=== PATIENT | male | born 1970 | race Hispanic/Latino ===

== ENCOUNTER 2024-01-18 17:23 | Emergency (ER) | payer OTHER ==
[~2024-01-18] VITALS: Ht 188 cm; Wt 92.0 kg
[~2024-01-18 17:23] MED LIST: ALOGLIPTIN25 MG PO; CLARITIN10 MG PO; FISH OIL 1,001000 MG PO; JARDIANCE10 MG PO; LOVASTATIN10 MG PO; METFORMIN HCL500 M3 PO; METOPROLOL SUCC25 MG PO; NORVASC5 MG PO; PRILOSEC OTC20 MG PO; ZESTRIL20 MG PO
[2024-01-18 19:39] LABS: BILIRUBIN, URINE NEGATIVE (negative); BLOOD/HGB, URINE NEGATIVE (Negative); KETONE, URINE NEGATIVE (Negative); LEUK ESTERASE, URINE NEGATIVE (negative); NITRITE, URINE NEGATIVE (negative); PH, URINE 5.5 (5-7)
[2024-01-18 19:43] LABS: RED BLOOD CELLS, URINE 0-1 /hpf (0-5)
[2024-01-18 19:44] LABS: BACTERIA, URINE NONE SEEN /hpf (negative); CASTS, URINE NONE SEEN \\lpf; COLLECTION TYPE, URINE CLEAN CATCH; CRYSTALS, URINE NONE SEEN (0-1+); EPITHELIAL CELLS, URINE NONE SEEN /lpf (0-1+); REFLEX CULTURE, URINE Yes (No)
[2024-01-18 19:45] LABS: BASOPHILS 0.6 % (0-2); EOSINOPHILS 3.1 % (0-6); HEMATOCRIT 42.2 % (35.0-50.0); HEMOGLOBIN 15.3 g/dL (12.0-18.0); MCH 31.5 (27-36); MCHC 36.3 g/dl (30-36); MCV 86.6 fl (81-99); MONOCYTES 10.9 % (0-12); NEUTROPHILS 72.4 % (39-80); PLATELET COUNT 229 K/uL (140-440); RBC 4.87 M/ul (4.3-5.7); RDW 12.5 (10.5-15.0)
[2024-01-18 19:59] LABS: ALBUMIN 3.9 g/dL (3.4-5.0); ALBUMIN/GLOBULIN RATIO 0.8 (1.1-2.4); ANION GAP 14.9 (7-21); BILIRUBIN, TOTAL 0.9 ng/dL (0.2-1.0); BUN/CREATININE RATIO 8.13 (6.0-28.6); CALCIUM 9.8 mg/dL (8.5-10.1); CREATININE, SERUM 1.23 mg/dL (0.70-1.30); POTASSIUM 3.9 mmol/L (3.5-5.1); PROTEIN, TOTAL 8.8 g/dL (6.4-8.2)
[2024-01-18] MEDS ORDERED: ondansetron HCL 4 MG/2 ML VIAL IV ONE (20:00)
[2024-01-18] MEDS ORDERED: MORPHINE SULFATE 4 MG/ML VIAL IV ONE (20:00)
[2024-01-18] MEDS ORDERED: SODIUM CHLORIDE 0.9% 500 ML IV PRN (20:00)
[2024-01-18] MEDS ORDERED: MACROBID 100 M100 MG PO (20:51)
[2024-01-18] MEDS ORDERED: NITROFURANTOIN MONOHYD MACROCR 100 MG HOME.PACK PO ONE (21:00)
[2024-01-18 21:19] VITALS: BP 132/77
== END 2024-01-18 21:20 | disposition home or self-care (01) ==
LOC: ED 17:23
PROVIDERS: Family Medicine
DX: N39.0 Urinary tract infection, site not specified (principal); Z88.2 Allergy status to sulfonamides; Z88.6 Allergy status to analgesic agent; Z79.899 Other long term (current) drug therapy; Z79.84 Long term (current) use of oral hypoglycemic drugs
CPT/HCPCS: 36415; 74176; 80053; 81001; 83690; 85025; 87088; 96374; 96375; 99284-25; J2270; J2405; J7040